=== PATIENT | female | born 1970 | race African-American/Black ===

== ENCOUNTER 2025-02-17 18:16 | Emergency (ER) | payer OTHER | END 2025-02-17 18:58 | disposition home or self-care (01) | LOC: NAV ERS 18:16 | DX: R10.9 Unspecified abdominal pain (principal); I10 Essential (primary) hypertension; E11.9 Type 2 diabetes mellitus without complications; Z79.84 Long term (current) use of oral hypoglycemic drugs; Z79.899 Other long term (current) drug therapy | CPT/HCPCS: 99283 ==

== ENCOUNTER 2025-03-16 19:04 | Emergency (ER) | payer OTHER | END 2025-03-16 21:50 | disposition home or self-care (01) | LOC: NAV ERS 19:04 | DX: H10.13 Acute atopic conjunctivitis, bilateral (principal); J30.9 Allergic rhinitis, unspecified; J32.9 Chronic sinusitis, unspecified; E11.9 Type 2 diabetes mellitus without complications; I10 Essential (primary) hypertension; Z79.84 Long term (current) use of oral hypoglycemic drugs; Z79.899 Other long term (current) drug therapy | CPT/HCPCS: 71046; 87070; 87077; 87081; 87205; 87426; 87430; 96374; J2919 ==

== ENCOUNTER 2025-05-03 13:11 | Emergency (ER) | payer OTHER | END 2025-05-03 15:45 | disposition home or self-care (01) | LOC: NAV ERS 13:11 | DX: M79.672 Pain in left foot (principal); E11.40 Type 2 diabetes mellitus with diabetic neuropathy, unspecified; E11.9 Type 2 diabetes mellitus without complications; I10 Essential (primary) hypertension; Z79.899 Other long term (current) drug therapy; Z79.84 Long term (current) use of oral hypoglycemic drugs | CPT/HCPCS: 99283 ==

== ENCOUNTER 2025-06-12 11:24 | Emergency (ER) | payer OTHER ==
[2025-06-12] MEDS ORDERED: Ibuprofen 800 MG TAB ONE (12:03)
[2025-06-12] MEDS ORDERED: HYDROcodone/Acetaminophen 5/325 mg Tablet ONE (12:04)
== END 2025-06-12 12:12 | disposition home or self-care (01) ==
LOC: NAV ERS 11:24
DX: B35.1 Tinea unguium (principal); L03.116 Cellulitis of left lower limb; L85.3 Xerosis cutis; E11.9 Type 2 diabetes mellitus without complications; I10 Essential (primary) hypertension; G40.909 Epilepsy, unspecified, not intractable, without status epilepticus; Z79.899 Other long term (current) drug therapy; Z79.84 Long term (current) use of oral hypoglycemic drugs
CPT/HCPCS: 99283

== ENCOUNTER 2025-06-15 15:46 | Emergency (ER) | payer OTHER ==
[2025-06-15] MEDS ORDERED: predniSONE 20 MG TAB ONE (16:53)
== END 2025-06-15 16:55 | disposition home or self-care (01) ==
LOC: NAV ERS 15:46
DX: J30.9 Allergic rhinitis, unspecified (principal); E11.9 Type 2 diabetes mellitus without complications; I10 Essential (primary) hypertension; Z79.899 Other long term (current) drug therapy; Z79.84 Long term (current) use of oral hypoglycemic drugs
CPT/HCPCS: 99283; J7512